=== PATIENT | female | born 1990 | race Caucasian/White ===

== ENCOUNTER → 2022-04-11 08:50 | Outpatient (CLI) | payer OTHER, SELFPAY ==
[2022-04-11 14:23] LABS: COVID19 -Nasal RAPID Negative (Negative)
== END ==
PROVIDERS: PCP Obstetrics & Gynecology; Visit Provider Obstetrics & Gynecology
DX: Z01.812 Encounter for preprocedural laboratory examination (principal); Z20.822 Contact with and (suspected) exposure to COVID-19
CPT/HCPCS: 87635

== ENCOUNTER 2022-04-12 07:41 | Day surgery (SDC) | payer OTHER, SELFPAY ==
[2022-04-08 13:23] VITALS: BMI 32.9
[2022-04-12] VITALS (7 sets, daily range): BP systolic 105–126; BP diastolic 73–85; PULSE 75–93; RESP 11–18; TEMP 36.4–36.8; O2SAT 97–100; BMI 32.9
--- NOTE | 2022-04-12 | PATH_ITS ---
[facility] Accession Number: [id number] . 01 Material submitted: . fallopian tube - BILATERAL FALLOPIAN TUBES . 01 Diagnosis: Bilateral Fallopian Tubes, Bilateral Salpingectomy: Fallopian tubes x2, complete cross-sections; negative for atypia or malignancy. [facility] 04/15/2022 0919 Local . 01 Electronically signed: . Janina Camp MD, Pathologist NPI- [id number] . 01 Gross description: . Received in formalin, labeled with the patient's name and bilateral fallopian tubes, and consists of two unoriented fimbriated fallopian tubes measuring 7.2 x 0.9 cm and 7.0 x 0.5 cm, respectively. The longer fallopian tube has congested smooth serosa with no cystic structures identified. Serial sectioning reveals an unremarkable stellate lumen. The shorter fallopian tube has smooth, congested serosa with no cystic structures. Serial sectioning reveals an unremarkable stellate lumen. Sections to include the entire fimbriae and delivery representative cross sections are submitted as follows: A1: Longer fallopian tube. A2: [place] fallopian tube. ([id number]) /[facility] 04/13/2022 1406 Local . 01 Pathologist provided ICD-10: Z30.2 . 01 CPT . 434181 Specimen Comment: A courtesy copy of this report has been sent to [phone] Performed at: 01 [facility] [address] [place] [address], [place], [place] [id number] MD Jose Juan Tripp MD Phone: [phone]
[2022-04-12] MEDS: LACTATED RINGERS 1,000 ML 84 ML IV (08:22)
--- NOTE | 2022-04-12 09:40 | PM.PREOP ---
Pre-operative Note COVID-19 COVID-19 status: Negative Result date/Date tested (Pos, Neg/Pending): 04/11/22 Criteria for continued procedure: Non-surgical alternatives not available or appropriate per current SOC Interval Note History & Physical reviewed/Exam performed by Physician: Yes Changes to H&P: No
[2022-04-12] MEDS: BUPIVACAINE 0.5% W/ EPI (PF) 30 ML VIAL INJ (10:12)
--- NOTE | 2022-04-12 10:14 | SUR.OPER ---
Lithotomy on padded OR bed, head on pillow, arms padded with gel pads and tucked at sides. Legs secured in padded yellow fins stirrups. Patient voided at 0945 in pre-op area prior to entering OR.
--- NOTE | 2022-04-12 10:49 | PM.GYNOP.1 ---
Operative Date/Time/Diagnoses Date of procedure: 04/12/22 Time of procedure: 09:45 Pre-op diagnosis: Request for sterilization Post-op diagnosis: same Procedure & Clinicians Procedure: Procedures Operation Date: 04/12/22 09:15 Actual Procedure Side Surgeon p Laparoscopic Bilateral Salpingectomy Bilateral Deny Babb MD Indications: Karley is a 31-year-old A1, LMP 04/03/2022 who presented earlier this year to discuss permanent sterilization.? Patient has never wanted children and when she did conceive one , she elected to terminate the .? The patient has thought about sterilization for number of years and is absolutely convinced that is the right decision for both her and her who also does not want to have children.? Patient counseled regarding male sterilization and long acting reversible contraception but is adamant that she would prefer to move forward with permanent sterilization.? Most recent Pap in July of 2021 was negative as have all of her prior Paps.? After consideration of all options, patient has decided to proceed with laparoscopic bilateral salpingectomy for sterilization and presents today for her scheduled surgery. Surgeon: Deny Babb Anesthesia Type: General Operative Notes Findings: The uterus is retroverted and there is a corpus luteum in the left ovary but otherwise the pelvis is unremarkable to laparoscopic visualization. Appendix was not seen and the upper abdomen is normal laparoscopic visualization. Closure Type: primary Specimen(s): left tube and right tube Estimated blood loss (mL): 0 Blood products transfused: none Procedure in detail: With the patient under satisfactory general anesthesia in the modified dorsal lithotomy position, the perineum, vagina, and abdomen were prepped and draped for laparoscopic bilateral salpingectomy. A pre-surgical safety time-out was then taken in accordance with [facility] Main OR protocols. The umbilicus was then infiltrated with 0.5% Marcaine with epinephrine and 1 cm vertical incision was made in the inferior aspect of the umbilicus. Veress needle was used to insufflate the abdomen with carbon dioxide and once appropriately insufflated, 5 mm bladeless trocar and sleeve were inserted through the incision. Proper placement of the sleeve was confirmed with laparoscopic visualization and insufflation of the abdomen continued. A 2nd and 3rd 5 mm laparoscopic port were placed in the right and left mid quadrants using a similar technique and using a 3 puncture technique, the abdomen and pelvis were visualized with the findings as noted above. The distal aspect of the left fallopian tube was then grasped with a grasping forceps and using a Power Seal device, fimbria ovarica was coagulated and divided the dissection using the Power Seal continuing across the mesosalpinx to the cornua where the base fallopian tube was coagulated and divided. The left fallopian tube was then removed through one of the ports and submitted pathologic specimen. Attention was then turned to the right adnexa with distal tube grasped with a grasping forcep. The Power Seal device was then used to coagulate fimbria ovarica and the dissection was carried across the mesosalpinx to the cornua where the fallopian tube on the right side was amputated at the cornua following coagulation proximal tube the Power Seal device. Pelvis was inspected and there were no abnormalities noted following bilateral salpingectomy. The pneumoperitoneum was then vented and the ports removed from the abdominal wall. Port incisions were then closed with 4-0 Monocryl using inverted interrupted stitches and skin glue was applied. Appropriate dressings were then applied, patient was awakened, and transferred to the PACU for a period of observation after having tolerated the procedure well. Complications: none Post-operative Condition: stable Disposition: PACU Plan for aftercare: Routine postoperative care with follow-up appointment scheduled 2 weeks.
[2022-04-12] MEDS: OXYCODONE IR 5 MG TABLET PO (10:56)
== END 2022-04-12 11:45 | disposition home or self-care (01) ==
PROVIDERS: Referring Provider Obstetrics & Gynecology; Visit Provider Obstetrics & Gynecology
PROC: 0UT74ZZ Resection of Bilateral Fallopian Tubes, Percutaneous Endoscopic Approach (ICD-10-PCS; CPT 58661; principal; 2022-04-12 09:15)
DX: Z30.2 Encounter for sterilization (principal)
CPT/HCPCS: 58661; J1100; J1885; J2250; J2405; J2704; J3010